=== PATIENT | female | born 1965 | race Asian ===

== ENCOUNTER 2019-08-17 06:08 | Day surgery (SDC) | payer OTHER ==
[~2019-08-17] VITALS: Ht 121.9 cm; Wt 45.4 kg
[~2019-08-17 06:08] MED LIST: LEVO500T6 PO; LORA10TA19 PO; PHEN100C3 PO; PRED20TA5 PO
[2019-08-17] MEDS ORDERED: fentaNYL 0.05 MG/ML VIAL ONE (07:41)
[2019-08-17] MEDS ORDERED: LIDOCAINE 2% 100 MG/5 ML UJET TP ONE (07:42)
[2019-08-17] MEDS ORDERED: fentaNYL 0.05 MG/ML VIAL IVP ONE (09:25)
== END 2019-08-17 08:50 | disposition home or self-care (01) ==
LOC: MOR 06:08 → MMU 06:09 → MOR 08:50
PROVIDERS: ATTEND Internal Medicine Gastroenterology
DX: Z12.11 Encounter for screening for malignant neoplasm of colon (principal); D12.3 Benign neoplasm of transverse colon; J45.909 Unspecified asthma, uncomplicated; R56.9 Unspecified convulsions
CPT/HCPCS: 45385; J3010